=== PATIENT | male | born 1995 | race Native Hawaiian/Other Pacific Islander ===

== ENCOUNTER 2022-04-09 09:18 | Inpatient (IN) ==
[2022-04-09] MEDS ORDERED: SODIUM CHLORIDE 0.9% 1000ML 500 ML IV ONE ×2 (09:28→16:41)
--- NOTE | 2022-04-09 09:30 | Emergency Department Note ---
Impression & Plan Pneumothorax ADMIT ED Provider Note HPI: The patient is a 26-year-old male who presents emergency department with a chief complaint of right-sided chest pain. Patient states that his symptoms began about 40 minutes prior to arrival to the ED. Patient states that he has sensation as if he had a "muscle tear" in his right pectoral muscle, denies any injuries, denies any inciting event and states the pain just began spontaneously. Patient does complain of some mild shortness of breath. Patient also states that he had an episode where he felt as if he was going to "pass out" although he did not lose consciousness and then this episode resolved and he feels back to baseline from that standpoint. On arrival here to the ED the patient is hemodynamically stable, he is saturating well on room air on my initial assessment. ROS: -Cardio: Right-sided chest discomfort *10 point review systems was conducted and is otherwise negative unless stated above *Outpatient medications and allergy history reviewed PE: General: Alert HEENT: Normocephalic, trachea midline Eyes: Extraocular eye movement is intact, no scleral erythema Pulmonary: Slightly diminished breath sounds on the right side, no wheezing or crackles noted bilaterally, breath sounds on the left side are clear Cardio: Regular rate and rhythm GI: Abdomen is soft, nontender : No suprapubic tenderness MSK: No evidence of trauma or malformation of the extremities, no edema Skin: No evidence of rash Neuro: Alert, no focal deficits Psychiatric: Cooperative general accounting clerk: - An order was placed for continuous cardiac monitoring - Patient was noted to be in sinus rhythm with a rate of 70 EKG: Rate: 62 Rhythm: Normal sinus rhythm Intervals: Within normal limits ST changes: No ST elevation Time: 928 Medical Decision Making: Patient presented to the emergency department with right-sided chest discomfort that began earlier this morning. Chest x-ray shows evidence of a moderate sized pneumothorax on the right, this is the second time the patient has had this issue, he notes that previously he did not require chest tube. Lab work is otherwise reassuring including a normal troponin and negative D-dimer, EKG shows normal sinus rhythm without ischemic changes. Patient is hemodynamically stable here in the ED and he is saturating well on room air without tachycardia. I discussed the patient's case with on-call pulmonology, Dr. Mckoen, who recommended admission and stated that he would perform the chest tube himself. Case was then discussed with the on-call hospitalist, Dr. Mckeon, who was in agreement for admission. At the advice of Dr. Mckeon I did contact c ardiothoracic surgery at [facility] in [facility], I discussed the case with Dr. Callejas, who was in agreement that the patient will likely require a VATS procedure at some point in the near future as this is the second time he has had a spontaneous pneumothorax on the right side, at this time he does not think that this needs to happen emergently and the patient can be admitted here for definitive care with chest tube placement and follow-up with cardiothoracic surgery at [facility] in the next several weeks following his discharge. Patient was in agreement to this plan and he was admitted in stable condition for pulmonology consultation, chest tube placement, and observation admission. Diagnosis: 1. Right-sided chest pain, acute 2. Spontaneous pneumothorax, right-sided Disposition: Admission Chad Taylor DO Emergency Medicine Past Med/Surg History Medical History No significant past medical history Surgical History No significant past surgical history Family History Other Heart disease Social History Smoking Status: Never smoker Preferred Language: Danish Feels Safe at Home: Yes Allergies Allergies Allergy/AdvReac Type Severity Reaction Status Date / Time No Known Allergies Allergy Verified 05/03/21 16:04 Home Meds Home Medications Medication Instructions Recorded Confirmed acetaminophen 500 mg tablet 500 mg PO Q6H PRN Pain 05/03/21 04/09/22 (Tylenol Extra Strength) finasteride 1 mg tablet 1 mg PO DAILY 04/09/22 04/09/22 Results & Data (ED) Vital Signs Vital Signs - 24 hr 04/09/22 09:20 04/09/22 09:35 04/09/22 09:35 Temperature 36.7 C Temperature Source Temporal Artery Scan Pulse Rate 62 62 Pulse Rate from SpO2 Sensor Pulse Rhythm Regular Respiratory Rate 20 20 Respiratory Effort / Characteristics Non-Labored Non-Labored Respiratory Depth Normal Normal Blood Pressure 107/48 L Blood Pressure Mean 67 Pulse Oximetry 98 98 Oxygen Delivery Method Room Air Room Air Room Air Sepsis Recent Fever Within 48 Hours No Sepsis New/Unexplained Change in Mental Status N/A Sepsis Action Taken by Nursing No Action Required 04/09/22 09:33 04/09/22 10:00 04/09/22 10:30 Temperature Temperature Source Pulse Rate 55 L 56 L 65 Pulse Rate from SpO2 Sensor 55 L 55 L 62 Pulse Rhythm Respiratory Rate 15 16 13 Respiratory Effort / Characteristics Respiratory Depth Blood Pressure 120/54 L 115/67 Blood Pressure Mean 76 83 Pulse Oximetry 99 100 99 Oxygen Delivery Method Sepsis Recent Fever Within 48 Hours Sepsis New/Unexplained Change in Mental Status Sepsis Action Taken by Nursing Laboratory Data Result diagrams: 04/09/22 09:35 04/09/22 09:35 Lab Results 04/09/22 04/09/22 04/09/22 Range/Units 09:35 09:35 09:35 WBC 4.18 L (4.8-10.8) K/ul RBC 5.39 (4.63-6.08) M/uL Hgb 16.4 (14.0-18.0) g/dl Hct 47.8 (40.1-51.0) % MCV 88.7 (80.0-100.0) fL MCH 30.4 (25.0-34.0) pg MCHC 34.3 (32.0-36.0) g/dL RDW Std Deviation 38.5 (36.4-46.3) fL RDW Coeff of Holly 11.9 (11.5-14.5) % Plt Count 220 (130-400) K/uL MPV 10.0 (9.4-12.4) fL Immature Gran % (Auto) 0.2 % Neut % (Auto) 56.8 % Lymph % (Auto) 29.9 % Hunt % (Auto) 6.2 % Eos % (Auto) 6.2 % Baso % (Auto) 0.7 % Neut # (Auto) 2.37 (1.4-6.5) K/uL Lymph # (Auto) 1.25 (1.2-3.4) K/uL Hunt # (Auto) 0.26 (0.24-0.82) K/uL Eos # (Auto) 0.26 (0-0.50) K/uL Baso # (Auto) 0.03 (0-0.2) K/uL Immature Gran # (Auto) 0.01 (0.00-0.02) K/uL D-Dimer Cancelled Sodium 138 (136-145) mmol/L Potassium TNP Chloride 104 (98-107) mmol/L Carbon Dioxide 29 (21-32) mmol/L Anion Gap 5 (3-11) BUN 13 (6-23) mg/dl Creatinine 1.06 (0.6-1.4) mg/dl Est Cr Clr Drug Dosing 117.9 ml/min Est GFR ( Amer) 113.3 ml/min Est GFR (Non-Af Amer) 97.8 ml/min BUN/Creatinine Ratio 12.3 (10-20) Glucose 99 (70-99(Fasting)) mg/dl Calcium 9.8 (8.5-10.1) mg/dl Total Bilirubin 0.7 (0.2-1.0) mg/dl AST TNP ALT 26 (7-52) U/L Alkaline Phosphatase 45 (34-104) U/L Troponin I High Sens 3.1 (0-20) pg/ml Total Protein 7.6 (6.0-8.3) gm/dl Albumin 4.7 (3.4-5.0) gm/dl Globulin 2.9 (2.5-4.0) gm/dl Albumin/Globulin Ratio 1.6 (0.9-2) Lipase 19 (11-82) U/L SARS-CoV-2, RNA, NAAT (NEGATIVE) 04/09/22 04/09/22 Range/Units 10:27 10:34 WBC (4.8-10.8) K/ul RBC (4.63-6.08) M/uL Hgb (14.0-18.0) g/dl Hct (40.1-51.0) % MCV (80.0-100.0) fL MCH (25.0-34.0) pg MCHC (32.0-36.0) g/dL RDW Std Deviation (36.4-46.3) fL RDW Coeff of Holly (11.5-14.5) % Plt Count (130-400) K/uL MPV (9.4-12.4) fL Immature Gran % (Auto) % Neut % (Auto) % Lymph % (Auto) % Hunt % (Auto) % Eos % (Auto) % Baso % (Auto) % Neut # (Auto) (1.4-6.5) K/uL Lymph # (Auto) (1.2-3.4) K/uL Hunt # (Auto) (0.24-0.82) K/uL Eos # (Auto) (0-0.50) K/uL Baso # (Auto) (0-0.2) K/uL Immature Gran # (Auto) (0.00-0.02) K/uL D-Dimer < 190 Sodium (136-145) mmol/L Potassium Chloride (98-107) mmol/L Carbon Dioxide (21-32) mmol/L Anion Gap (3-11) BUN (6-23) mg/dl Creatinine (0.6-1.4) mg/dl Est Cr Clr Drug Dosing ml/min Est GFR ( Amer) ml/min Est GFR (Non-Af Amer) ml/min BUN/Creatinine Ratio (10-20) Glucose (70-99(Fasting)) mg/dl Calcium (8.5-10.1) mg/dl Total Bilirubin (0.2-1.0) mg/dl AST ALT (7-52) U/L Alkaline Phosphatase (34-104) U/L Troponin I High Sens (0-20) pg/ml Total Protein (6.0-8.3) gm/dl Albumin (3.4-5.0) gm/dl Globulin (2.5-4.0) gm/dl Albumin/Globulin Ratio (0.9-2) Lipase (11-82) U/L SARS-CoV-2, RNA, NAAT NEGATIVE (NEGATIVE) Administered Medications Discontinued Medications Sodium Chloride (Nss 1000ml) 500 mls @ 999 mls/hr IV .Q31M ONE Stop: 04/09/22 09:58 Last Infusion: 04/09/22 10:12 Dose: 0 mls/hr Documented By: Admin: 04/09/22 09:39 Dose: 999 mls/hr Documented By: SERA Imaging Data Radiologist's Impression: Chest X-Ray 04/09/22 09:20 SINGLE VIEW CHEST CLINICAL HISTORY: Atypical chest pain FINDINGS: 2 AP, portable, upright chest radiographs are compared to study dated 05/02/2021. The cardiomediastinal silhouette is unremarkable. No airspace consolidation or pleural effusion is identified. There is a moderate right apical pneumothorax with approximately 4 cm pleural separation. The bony thorax is grossly intact. IMPRESSION: Moderate right apical pneumothorax. ACT 112: Negative or not required by law. Electronically signed by: Santiago Atkinson M.D. 04/09/2022 10:13 AM Discharge Plan Visit Data Chief Complaint: Chest Pain Stated Complaint: SEVERE CHEST PAIN,NEAR SYNCOPE ED Provider: Chad Taylor Discharge Problem: Pneumothorax Patient Disposition: Admitted As Inpatient Forms Stand Alone Forms: [facility] [employer] Prescriptions Prescriptions: No Action acetaminophen [Tylenol Extra Strength] 500 mg tablet 500 mg PO Q6H PRN (Reason: Pain) finasteride 1 mg tablet 1 mg PO DAILY Referrals Referrals: PCP,NO [Primary Care Provider] -
[2022-04-09 10:05] LABS: Basophils # (auto) 0.03 K/uL (0-0.2); Basophils % (auto) 0.7 %; Eosinophils # (auto) 0.26 K/uL (0-0.50); Eosinophils % (auto) 6.2 %; Hematocrit (blood only) 47.8 % (40.1-51.0); Hemoglobin 16.4 g/dl (14.0-18.0); Immature Granulocytes # (auto) 0.01 K/uL (0.00-0.02); Immature Granulocytes % (auto) 0.2 %; Lymphocytes # (auto) 1.25 K/uL (1.2-3.4); Lymphocytes % (auto) 29.9 %; Mean Corpuscular Hemoglobin 30.4 pg (25.0-34.0); Mean Corpuscular Hgb Conc 34.3 g/dL (32.0-36.0); Mean Corpuscular Volume 88.7 fL (80.0-100.0); Monocytes # (auto) 0.26 K/uL (0.24-0.82); Monocytes % (auto) 6.2 %; Neutrophils # (auto) 2.37 K/uL (1.4-6.5); Neutrophils % (auto) 56.8 %; Platelet Count 220 K/uL (130-400); RDW Coefficient of Variation 11.9 % (11.5-14.5); RDW Standard Deviation 38.5 fL (36.4-46.3); Red Blood Count 5.39 M/uL (4.63-6.08); White Blood Count 4.18 K/ul (4.8-10.8)
--- NOTE | 2022-04-09 10:15 | XRay Report ---
SINGLE VIEW CHEST CLINICAL HISTORY: Atypical chest pain FINDINGS: 2 AP, portable, upright chest radiographs are compared to study dated 05/02/2021. The cardio mediastinal silhouette is unremarkable. No airspace consolidation or pleural effusion is identified. There is a moderate right apical pneumothorax with approximately 4 cm pleural separation. The bony th orax is grossly intact. IMPRESSION: Moderate right apical pneumothorax. ACT 112: Negative or not required by law. Electronically signed by: Santiago Atkinson M.D. 04/09/2022 10:13 AM
[2022-04-09] MEDS ORDERED: LIDOCAINE 1%/EPINEPHRINE 1:100,000 50 ML VIAL ONE ×2 (10:18→10:20)
--- NOTE | 2022-04-09 10:51 | History & Physical Report ---
Date of Service April 09, 2022 Assessment & Plan (1) Spontaneous pneumothorax: Plan: Cedrick is a 26-year-old male who presents with a second episode of spontaneous pneumothorax, had tearing right chest wall pain 40 minutes before presentation to ER. Recurrent Right Spontaneous apical pneumothorax No history of trauma, occurred spontaneously with a sudden tearing sensation 40 minutes prior to ER presentation No history of tobacco use, vape use, underlying lung disease Second episode, patient with a Spontaneous 4.6 cm apical right pneumothorax 05/02/2021 4 cm pleural separation on presenting CXR D-dimer normal, COVID-negative, troponin normal Pulmonary consulted. Repeat serial imaging at 3 PM. Case was discussed by ER with tertiary care who did not recommend transfer for surgical intervention. We will see for follow-up as outpatient. Avoid NIV/PPV/HFNC Placed on oxygen nonrebreather to facilitate absorption pending pulm evaluation/pigtail Alopecia - Finasteride 1mg home dose continued DVT PPx: Low risk, SCDs Diet: Reg Dispo: PCU CODE STATUS: Full (2) Chest pain: History of Present Illness Primary Care Provider: NO PCP Cedrick is a 26-year-old male with no past medical history no chronic medications who presented to the emergency department with right-sided chest pain which began 40 minutes prior to presentation to the ER. Feeling of a tearing sensation in his right chest with some lightheadedness, although no loss of consciousness. On arrival to ER was satting on room air and felt back to normal. 8:30am started to feel pain in his upper R chest and pain began to swell and he had some dizziness/lightheadedness and which lasted for a few minutes. Pain persisted and came in the No leukocytosis, hemoglobin 16.4, COVID is pending, CXR: Moderate right apical pneumothorax with 4 cm pleural separation No coughing, no trauma or injury. Had 1 similar episode/pneumo in April which improved with conservative treatment. 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 No history of lung problems inclduing asthma/wheezing/prior pneumo No family history of pneumo, lung problems No chest pain at time of assessment. No pain sitting up, does have pain when he starts moving No shortness of breath at time of assessment, no lightheadedness/dizziness/N/V/D/C. No ab pain Finasteride for hair loss, no other chronic medications No medication allergies Medical History: Reviewed Medications: Reviewed. Takes finasteride for hair loss. No other medications Surgical History: Reviewed Allergies: Reviewed Social History: No tobacco products, rare social alcohol use none recently. No MM, no vaping. Code Status: FUll Code Allergies Allergy/AdvReac Type Severity Reaction Status Date / Time No Known Allergies Allergy Verified 05/03/21 16:04 Home Medications Medication Instructions Recorded Confirmed Type acetaminophen 500 mg tablet 500 mg PO Q6H PRN Pain 05/03/21 04/09/22 History (Tylenol Extra Strength) finasteride 1 mg tablet 1 mg PO DAILY 04/09/22 04/09/22 History Past Med/Surg History Medical History No significant past medical history Surgical History No significant past surgical history Family History Other Heart disease Social History Smoking Status: Never smoker Preferred Language: Bengali Feels Safe at Home: Yes Review of Systems Review of Systems: All systems reviewed & are unremarkable except as noted in Subjective Physical Exam Physical Exam: General: A&Ox3. NAD. Cooperative. HEENT: Atraumatic, normocephalic. Vision/hearing grossly intact Pulm: CTAB A&P. -wheezes, -rales, -rhonchi. Symmetrical chest rise. No increased work of breathing. No respiratory distress. Cardiac: RRR, -mrg. Radial pulses intact and symmetrical. Abdominal: Nontender, nondistended, soft. BS present. Ext: warm, dry. moving all extremities equally. Sensation/strength grossly itnact. Results & Data Results & Data ([facility]) Vital Signs (Past 12 Hours) Vital Signs Temp Pulse Resp BP Pulse Ox O2 Del Method 04/09/22 10:30 65 13 99 04/09/22 10:00 56 L 16 115/67 100 04/09/22 09:33 55 L 15 120/54 L 99 04/09/22 09:35 62 20 98 Room Air 04/09/22 09:35 Room Air 04/09/22 09:20 36.7 C 62 20 107/48 L 98 Room Air PG Care Time/CCT Total # of Minutes Spent Total Time Spent with Patient: Total time spent is greater than 50% in coordination of care (as documented) at patient's floor/unit and/or counseling patient: Coding Level of Care Code 16653 Initial Inpt Care Lvl 2 Diagnoses Spontaneous pneumothorax J93.83 Chest pain R07.9
--- NOTE | 2022-04-09 11:01 | Pulmonary Consultation ---
Date of Consultation April 09, 2022 Assessment & Plan (1) Spontaneous pneumothorax: (2) Chest pain: Plan Chest x-ray 04/09/2022 personally reviewed: Pulm both lungs, right-sided pneumothorax appreciated small to moderate in size, no mediastinal shift -- Spontaneous pneumothorax Right-sided, this is the second instance Patient initially had a chest x-ray done 05/02/2021 with similar presentation and had moderate-sized pneumothorax at that time Patient was sent home and no intervention was taken at that time Pneumothorax which he had 05/02/2021 spontaneously resolved and this is likely a new pneumothorax -- Chest pain Likely secondary to above Plan: Given that this is second episode of right-sided pneumothorax within a year. Surgical intervention/VATS would be appropriate Dr. Taylor was able to get in touch with CT thoracic surgery who wants follow-up as an outpatient once this episode has been taken care of. Patient is right now hemodynamically stable. I will put him on 100% nonrebreather. If there is no improvement in the size of the pneumothorax in 4-6 hours then consideration for pigtail catheter will be made I did discuss the case with Dr. Collado and Dr Sorto Please note the above document was generated using voice recognition software. It may contain grammatical, syntax or spelling errors.Any formal questions or concerns about the content, text or information contained within the body of this dictation should be directly addressed to the provider for clarification. History of Present Illness History of Present Illness 26-year-old male coming to pulmonary because of right-sided chest pain Past medical history: Noncontributory Patient says that today in the morning he woke up with pain on the right side of the chest. It increased in intensity and felt chest pressure on the right side It has improved since coming to the hospital but he still gets pain when he takes deep breath He goes to the gym up to 2-3 times a week. He was here in the ER on 05/02/2021 when he complained of chest pain when he was doing chest press on the right side. He had a chest x-ray done in the ER which was read normal and he was sent home. I personally looked at the chest x-ray and he had moderate-sized pneumothorax on the right side at that time as well. Denies any history of trauma. No headache, no nausea vomiting No history of lung disease in the family. Did not has any fits of coughing lately. No fever or chills Social history: Lifetime non-smoker, no marijuana use. Social alcohol. Allergies Allergy/AdvReac Type Severity Reaction Status Date / Time No Known Allergies Allergy Verified 05/03/21 16:04 Home Medications Medication Instructions Recorded Confirmed Type acetaminophen 500 mg tablet 500 mg PO Q6H PRN Pain 05/03/21 04/09/22 History (Tylenol Extra Strength) finasteride 1 mg tablet 1 mg PO DAILY 04/09/22 04/09/22 History Patient History Medical History (Updated 04/09/22 @ 10:58 by Bud Mckeon MD, [facility]) No significant past medical history Surgical History No significant past surgical history Family History (Updated 05/02/21 @ 07:36 by Kerry Pfeiffer PA-C) Other Heart disease Social History Smoking Status: Never smoker Preferred Language: Turkmen Feels Safe at Home: Yes Review of Systems Review of Systems: All systems reviewed & are unremarkable except as noted in HPI & below Physical Exam Physical Exam: Constitutional: No acute distress HEENT: EOMI, PERRLA Respiratory system: Good air entry bilaterally no wheeze, no rhonchi, no crac kles CVS: S1-S2 positive, no murmurs or gallops Abdomen: Soft, nontender, nondistended, positive bowel sounds x4 Extremities: +2 pulses bilaterally radialis/ dorsalis pedis, no cyanosis, no edema Neuro: Awake alert oriented x3 Psych: Normal mood and affect G/U: Negative except as above Skin: no rashes, warm and dry Lymphatic: no cervical or axillary lymphadenopathy Results & Data Results & Data ([facility]) Vital Signs (Past 12 Hours) Vital Signs Temp Pulse Resp BP Pulse Ox O2 Del Method 04/09/22 10:30 65 13 99 04/09/22 10:00 56 L 16 115/67 100 04/09/22 09:33 55 L 15 120/54 L 99 04/09/22 09:35 62 20 98 Room Air 04/09/22 09:35 Room Air 04/09/22 09:20 36.7 C 62 20 107/48 L 98 Room Air Laboratory Results 04/09/22 09:35 PG Care Time/CCT Total # of Minutes Spent Total Time Spent with Patient: Total time spent is greater than 50% in coordination of care (as documented) at patient's floor/unit and/or counseling patient: Coding Level of Care Code 96595 Initial Inpt Care Lvl 3 Diagnoses Spontaneous pneumothorax J93.83 Chest pain R07.9
[2022-04-09 11:13] LABS: D Dimer < 190 ug/L FEU (0-500)
[2022-04-09 11:14] LABS: Alanine Aminotransferase 26 U/L (7-52)
[2022-04-09 11:15] LABS: Albumin Globulin Ratio 1.6 (0.9-2); Albumin Level 4.7 gm/dl (3.4-5.0); Alkaline Phosphatase 45 U/L (34-104); Anion Gap 5 (3-11); BUN Creatinine Ratio 12.3 (10-20); Bilirubin,Total 0.7 mg/dl (0.2-1.0); Blood Urea Nitrogen 13 mg/dl (6-23); Calcium 9.8 mg/dl (8.5-10.1); Carbon Dioxide 29 mmol/L (21-32); Chloride 104 mmol/L (98-107); Creatinine Clr Calc Pharmacy 117.9 ml/min; Est GFR (African American) 113.3 ml/min; Est GFR (Non-African American) 97.8 ml/min; Globulin 2.9 gm/dl (2.5-4.0); Glucose 99 mg/dl (70-99(Fasting)); Lipase 19 U/L (11-82); Sodium 138 mmol/L (136-145); Total Protein 7.6 gm/dl (6.0-8.3); Troponin I High Sensitivity 3.1 pg/ml (0-20)
[2022-04-09] MEDS ORDERED: ACETAMINOPHEN 325 MG TAB PO PRN (12:27)
--- NOTE | 2022-04-09 15:39 | XRay Report ---
SINGLE VIEW CHEST CLINICAL HISTORY: Pneumothorax. FINDINGS: 2 AP, portable, upright chest radiographs are compared to study performed earlier the same day 04/09/2022. The cardiomediastinal silhouette is unremarkable. There is no airspace consolidation or pleural effusion. The right pleural effusion is now large, and extends to the right lung base. The re is a maximum of 4.7 cm pleural separation at the right apex. The trachea is midline. The bony thor ax is grossly intact. IMPRESSION: Large right pneumothorax. This has significantly increased in size from today's earlier e xamination. ACT 112: Negative or not required by law. Electronically signed by: Santiago Atkinson M.D. 04/09/2022 3:37 PM
[2022-04-09] MEDS ORDERED: LIDOCAINE 1% LOCAL 20 ML VIAL ONE (16:03)
--- NOTE | 2022-04-09 16:43 | Procedure Note ---
Procedure Note Date of Service April 09, 2022 Note Procedure: Pigtail chest tube insertion Planer Operator / Grader: Dr. Bud Mckeon Indication: Right-sided pneumothorax Consent: Signed by patient and verified with timeout prior to procedure Anesthesia: 1% lidocaine without epinephrine local Procedure: Consent was verified and timeout performed. Appropriate imaging studies were reviewed prior to the procedure. Patient was placed in a seated position. Appropriate site above the diaphragm on the right midaxillary line fourth intercostal space for chest tube insertion was selected. The skin was prepped and draped in normal sterile fashion. Lidocaine was used for local analgesia. Air was aspirated via the finder needle. A small skin javi was made with the scalpel and the catheter over the needle apparatus was advanced over the rib into the pleural space. With the help of guidewire and Seldinger technique, 14 Swedish pigtail catheter was inserted and connected to Pleur-evac. No air leak appreciated after that. Chest x-ray to follow The patient tolerated the procedure without obvious complication Complications: None Blood loss: Less than 2 cc. Coding CPT Codes Pulmonary/Thoracic - Pulmonary and Thoracic: 14714 Tube thoracostomy ([id number]) [facility] Procedure Codes (Charges) Pulmonary/Thoracic Procedure 1: Pulmonary and Thoracic: 63667 Tube thoracostomy
--- NOTE | 2022-04-09 17:03 | Electrocardiogram Report ---
Test Reason : Blood Pressure : / mmHG Vent. Rate : 052 BPM Atrial Rate : 052 BPM P-R Int : 164 ms QRS Dur : 116 ms QT Int : 388 ms P-R-T Axes : 058 072 069 degrees QTc Int : 360 ms Sinus rhythm Anterior ST elevation, most consistent with repolarization variant Abnormal ECG When compared with ECG of 02-MAY-2021 07:25, No significant change Confirmed by Young Haynes ([id number]) on 04/09/2022 5:02:43 PM Referred By: REFERRED SELF Confirmed By:Young Haynes
--- NOTE | 2022-04-09 17:04 | XRay Report ---
XR chest 1V portable CLINICAL HISTORY: post pig tail chest tube placement TECHNIQUE: Single frontal radiograph of the chest was obtained. Comparison: Comparison is made to chest radiograph 04/09/2022 FINDINGS: Interval placement of a right pigtail catheter. The cardiomediastinal silhouette is normal. The lungs are clear. Previously noted right pneumothorax has resolved. IMPRESSION: Interval placement of right pigtail catheter with resolution of the previously seen pneumothorax. ACT 112: Negative or not required by law. Electronically signed by: Reuben Lee M.D. 04/09/2022 5:03 PM
[2022-04-10 06:03] LABS: Basophils # (auto) 0.04 K/uL (0-0.2); Basophils % (auto) 0.5 %; Eosinophils # (auto) 0.39 K/uL (0-0.50); Eosinophils % (auto) 5.2 %; Hemoglobin 15.8 g/dl (14.0-18.0); Immature Granulocytes # (auto) 0.02 K/uL (0.00-0.02); Immature Granulocytes % (auto) 0.3 %; Lymphocytes # (auto) 1.64 K/uL (1.2-3.4); Lymphocytes % (auto) 22.1 %; Mean Corpuscular Hemoglobin 30.7 pg (25.0-34.0); Mean Corpuscular Hgb Conc 34.3 g/dL (32.0-36.0); Mean Corpuscular Volume 89.3 fL (80.0-100.0); Mean Platelet Volume 10.1 fL (9.4-12.4); Monocytes # (auto) 0.53 K/uL (0.24-0.82); Monocytes % (auto) 7.1 %; Neutrophils # (auto) 4.81 K/uL (1.4-6.5); Neutrophils % (auto) 64.8 %; Platelet Count 203 K/uL (130-400); RDW Coefficient of Variation 11.9 % (11.5-14.5); RDW Standard Deviation 39.3 fL (36.4-46.3); Red Blood Count 5.15 M/uL (4.63-6.08); White Blood Count 7.43 K/ul (4.8-10.8)
[2022-04-10 06:31] LABS: BUN Creatinine Ratio 11.2 (10-20); Calcium 9.2 mg/dl (8.5-10.1); Creatinine Clr Calc Pharmacy 127.6 ml/min; Est GFR (African American) 124.6 ml/min; Est GFR (Non-African American) 107.5 ml/min; Potassium 4.4 mmol/L (3.5-5.1)
--- NOTE | 2022-04-10 07:51 | Pulmonology Progress Note ---
Date of Service April 10, 2022 Assessment & Plan (1) Spontaneous pneumothorax: (2) Chest pain: Plan Chest x-ray 04/09/2022 personally reviewed: Pulm both lungs, right-sided pneumothorax appreciated small to moderate in size, no mediastinal shift CT chest 04/10/2022 personally reviewed: Right-sided pneumothorax appreciated with right lower lobe basilar atelectasis No clear blebs appreciated on the right side No mediastinal lymphadenopathy -- Spontaneous pneumothorax Right-sided, this is the second instance Patient initially had a chest x-ray done 05/02/2021 with similar presentation and had moderate-sized pneumothorax at that time Patient was sent home and no intervention was taken at that time Pneumothorax which he had 05/02/2021 spontaneously resolved and this is likely a new pneumothorax -- Chest pain Likely secondary to above Plan: Although CT chest did show pneumothorax, small apical pneumothorax appreciated on the right side on the chest x-ray At the time of physical exam the chest tube was found to be kinked. On unkinking the chest tube there was a leak appreciated which was right less than 15 seconds. I increased the suction to -30 Given that the patient had pneumothorax on the CAT scan it seems that he will need to be on suction for another 24 hours. Case was discussed with RN at bedside Please note the above document was generated using voice recognition software. It may contain grammatical, syntax or spelling errors.Any formal questions or concerns about the content, text or information contained within the body of this dictation should be directly addressed to the provider for clarification. Admission and Anticipated Discharge Date Admission Date: April 09, 2022 Subjective Patient seen and examined at bedside. No acute distress, no adverse events overnight. He did complain of some chest pain at the site of the chest tube. Breathing has improved since coming to the hospital. Denies any fever or chills No nausea or vomiting Review of Systems Review of Systems: All systems reviewed & are unremarkable except as noted in Subjective Physical Exam 2 Physical Exam: Constitutional: No acute distress HEENT: EOMI, PERRLA Respiratory system: Good air entry bilaterally no wheeze, no rhonchi, no crackles CVS: S1-S2 positive, no murmurs or gallops Abdomen: Soft, nontender, nondistended, positive bowel sounds x4 Extremities: +2 pulses bilaterally radialis/ dorsalis pedis, no cyanosis, no edema Neuro: Awake alert oriented x3 Psych: Normal mood and affect G/U: Negative except as above Skin: no rashes, warm and dry Lymphatic: no cervical or axillary lymphadenopathy Results & Data Results & Data ([facility]) Vital Signs (Past 12 Hours) Vital Signs Temp Pulse Pulse Resp BP Pulse Ox O2 Del Method 04/10/22 07:34 36.7 C 62 17 126/79 97 Room Air 04/10/22 03:34 36.4 C L 65 20 125/71 96 Room Air 04/09/22 23:52 36.5 C 87 18 125/61 92 Room Air 04/09/22 23:06 66 04/09/22 20:06 36.7 C 64 18 113/71 97 Room Air Laboratory Results 04/10/22 05:15 04/10/22 05:15 PG Care Time/CCT Total # of Minutes Spent Total Time Spent with Patient: Total time spent is greater than 50% in coordination of care (as documented) at patient's floor/unit and/or counseling patient: Coding Level of Care Code 41028 Subseq Hosp Care Lvl 2 Diagnoses Spontaneous pneumothorax J93.83 Chest pain R07.9
--- NOTE | 2022-04-10 07:54 | XRay Report ---
XR chest 1V portable CLINICAL HISTORY: pneumo serial exam COMPARISON STUDY: Chest radiograph April 09, 2022 of 4:[address] performed earlier today . FINDINGS: Right basilar pleural catheter remains in place. A small right pneumothorax is noted with s uperior pleural separation 1.4 cm. Right lower lobe subpleural opacity favors atelectasis. There is n o left pneumothorax. Cardiac size is normal. Mediastinal contours are normal. IMPRESSION: Right basilar pleural catheter in place. Small right pneumothorax. ACT 112: Negative or not required by law. Electronically signed by: Shaheed Argueta M.D. 04/10/2022 7:52 AM
--- NOTE | 2022-04-10 08:04 | CT Scan Report ---
CT OF THE CHEST WITHOUT IV CONTRAST CLINICAL HISTORY: Pneumothorax. COMPARISON STUDY: Chest radiograph April 09, 2022 at 4:[address] DOSE: 360.12 mGy.cm TECHNIQUE: Axial images of the chest were obtained without IV contrast. Images were reviewed in the axial, sagittal, and coronal planes. IV contrast was not administered for this examination. Automat ed exposure control was utilized for the study. A dose lowering technique was utilized adhering to t he principles of ALARA. FINDINGS: A right pleural catheter is in place. There is a small right pneumothorax which occupies 20 % of the right hemithorax. Subpleural right lower lobe opacity reflects atelectasis. Trace right pleu ral effusion is present. No right-sided blebs are identified. There is no definitive source for the s pontaneous right pneumothorax. There are a few equivocal small left apical blebs. No left-sided pneum othorax is present. There is no consolidation to suggest pneumonia. Central airways are patent. No ac cheesh-na rib or thoracic spine fracture is noted. Visualized portions of the upper abdomen are unremarkabl e on this unenhanced exam. IMPRESSION: 1. Small right pneumothorax. Right pleural catheter in place. 2. No right-sided blebs identified. No definitive source for the spontaneous right pneumothorax. 3. A few equivocal small left apical blebs. 4. Subpleural right lower lobe opacity which reflects atelectasis. ACT 112: Negative or not required by law. Electronically signed by: Shaheed Argueta M.D. 04/10/2022 8:02 AM
--- NOTE | 2022-04-10 15:40 | Hospitalist Progress Note ---
Date of Service April 10, 2022 Assessment & Plan (1) Spontaneous pneumothorax: Plan: Cedrick is a 26-year-old male who presents with a second episode of spontaneous pneumothorax, had tearing right chest wall pain 40 minutes before presentation to ER. Recurrent Right Spontaneous apical pneumothorax No history of trauma, occurred spontaneously with a sudden tearing sensation 40 minutes prior to ER presentation No history of tobacco use, vape use, underlying lung disease Second episode, patient with a Spontaneous 4.6 cm apical right pneumothorax 05/02/2021 4 cm pleural separation on presenting CXR D-dimer normal, COVID-negative, troponin normal Pulmonary consulted-placed pigtail catheter with waterseal and vacuum, recommending continued vacuum into tomorrow Avoid NIV/PPV/HFNC - Case discussed with thoracic surgeon at [facility] recommended outpatient follow-up rather than urgent intervention - we will discuss CT chest imaging with radiologist to evaluate for pectus excavatum (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 CODE STATUS: Full code Admission and Anticipated Discharge Date Admission Date: April 09, 2022 Supervising Physician Co-Signing Physician Notes Resident Physician Supervision Note: I independently interviewed and examined the patient and verified the foley history and physical, reviewed labs and image studies and agree with resident findings and care plan. Subjective Patient seen at bedside this morning. No acute events reported overnight. Patient seems to be doing well and having only mild discomfort/pain at the chest tube site. Reports otherwise that he feels well. Went back into his history l ittle bit does seem that there is no family history of mixed tissue diseases/Marfan/Kathryn-Danlos. Denies any family history of premature cardiac . Overall doing well. Shortness of breath improved. Patient otherwise has no other complaints today Review of Systems Review of Systems: All systems reviewed & are unremarkable except as noted in HPI & below Physical Exam Constitutional: WD/WN, vitals as above Eyes: + anicteric sclerae Neck: normal visual inspection Respiratory: normal respiratory effort; no respiratory distress Auscul tation: + diminished lung sounds (At the right apex otherwise clear to auscultation) Cardiovascular: RRR, no murmur, no edema Chest (Breasts): Chest: normal inspection of chest Gastrointestinal (Abdomen): normal bowel sounds, soft, nontender, no hepatosplenomegaly Musculoskeletal: Head/Neck/Chest: normocephalic and head atraumatic Skin: no rashes, warm and dry Neurologic: moves all extremities Psychiatric: A+Ox3, euthymic affect Results & Data Results & Data ([facility]) Vital Signs (Past 12 Hours) Vital Signs Temp Pulse Pulse Resp BP Pulse Ox O2 Del Method 04/10/22 15:21 76 04/10/22 11:46 36.8 C 73 20 145/72 H 93 Room Air 04/10/22 08:23 66 04/10/22 07:34 36.7 C 62 17 126/79 97 Room Air 04/10/22 03:34 36.4 C L 65 20 125/71 96 Room Air
[2022-04-11 07:45] LABS: Hematocrit (blood only) 45.9 % (40.1-51.0); Hemoglobin 16.1 g/dl (14.0-18.0); Mean Corpuscular Hemoglobin 30.6 pg (25.0-34.0); Mean Corpuscular Hgb Conc 35.1 g/dL (32.0-36.0); Mean Corpuscular Volume 87.3 fL (80.0-100.0); Platelet Count 225 K/uL (130-400); RDW Coefficient of Variation 11.9 % (11.5-14.5); RDW Standard Deviation 38.5 fL (36.4-46.3); Red Blood Count 5.26 M/uL (4.63-6.08); White Blood Count 6.18 K/ul (4.8-10.8)
[2022-04-11 07:46] LABS: Mean Platelet Volume 9.7 fL (9.4-12.4)
[2022-04-11 08:20] LABS: BUN Creatinine Ratio 7.8 (10-20); Calcium 9.5 mg/dl (8.5-10.1); Creatinine Clr Calc Pharmacy 122.6 ml/min; Est GFR (African American) 118.7 ml/min; Est GFR (Non-African American) 102.4 ml/min; Potassium 4.2 mmol/L (3.5-5.1)
--- NOTE | 2022-04-11 08:46 | Pulmonology Progress Note ---
Date of Service April 11, 2022 Assessment & Plan (1) Spontaneous pneumothorax: (2) Chest pain: Plan Chest x-ray 04/09/2022 personally reviewed: Pulm both lungs, right-sided pneumothorax appreciated small to moderate in size, no mediastinal shift CT chest 04/10/2022 personally reviewed: Right-sided pneumothorax appreciated with right lower lobe basilar atelectasis No clear blebs appreciated on the right side No mediastinal lymphadenopathy -- Spontaneous pneumothorax Right-sided, this is the second instance Patient initially had a chest x-ray done 05/02/2021 with similar presentation and had moderate-sized pneumothorax at that time Patient was sent home and no intervention was taken at that time Pneumothorax which he had 05/02/2021 spontaneously resolved and this is likely a new pneumothorax Plan: Chest x-ray from today shows small apical pneumothorax. Unfortunately patient has +1 persistent leak with each breath. I will go down on suction to -20. If there is persistent air leak appreciated in the next 24-48 hours then surgical intervention should be sought Although CT chest did show pneumothorax, small apical pneumothorax appreciated on the right side on the chest x-ray Please note the above document was generated using voice recognition software. It may contain grammatical, syntax or spelling errors.Any formal questions or concerns about the content, text or information contained within the body of this dictation should be directly addressed to the provider for clarification. Admission and Anticipated Discharge Date Admission Date: April 09, 2022 Subjective Patient seen and examined at bedside. No acute distress, no adverse events overnight. Denies any shortness of breath Does complain of chest discomfort at the site of the chest tube No nausea vomiting No headache Review of Systems Review of Systems: All systems reviewed & are unremarkable except as noted in Subjective Physical Exam Physical Exam: Constitutional: No acute distress HEENT: EOMI, PERRLA Respiratory system: Mildly decreased air entry on the right side, no wheeze, rhonchi, no crackles CVS: S1-S2 positive, no murmurs or gallops Abdomen: Soft, nontender, nondistended, positive bowel sounds x4 Extremities: +2 pulses bilaterally radialis/ dorsalis pedis, no cyanosis, no edema Neuro: Awake alert oriented x3 Psych: Normal mood and affect G/U: Negative except as above Right-sided pigtail catheter in place Skin: no rashes, warm and dry Lymphatic: no cervical or axillary lymphadenopathy Results & Data Results & Data ([facility]) Vital Signs (Past 12 Hours) Vital Signs Temp Pulse Pulse Pulse Resp BP Pulse Ox 04/11/22 08:00 48 L 04/11/22 08:00 04/11/22 07:16 36.6 C 61 20 109/42 L 95 04/11/22 02:12 36.6 C 62 18 136/72 95 04/10/22 22:58 69 04/10/22 22:32 36.6 C 65 18 121/72 95 O2 Del Method 04/11/22 08:00 04/11/22 08:00 Room Air 04/11/22 07:16 Room Air 04/11/22 02:12 Room Air 04/10/22 22:58 04/10/22 22:32 Room Air Laboratory Results 04/11/22 07:20 04/11/22 07:20 PG Care Time/CCT Total # of Minutes Spent Total Time Spent with Patient: Total time spent is greater than 50% in coordination of care (as documented) at patient's floor/unit and/or counseling patient: Coding Level of Care Code 62010 Subseq Hosp Care Lvl 2 Diagnoses Spontaneous pneumothorax J93.83 Chest pain R07.9
--- NOTE | 2022-04-11 10:01 | XRay Report ---
XR chest 1V portable CLINICAL HISTORY: f/u TECHNIQUE: Single frontal radiograph of the chest was obtained. Comparison: Comparison is made to chest radiograph 04/10/2022 FINDINGS: Right chest tube is seen. The cardiomediastinal silhouette is normal. The lungs are clear. There is a 13 mm right apical pneumothorax, similar in appearance to prior exam. IMPRESSION: Stable appearance of right chest tube with stable small right pneumothorax. ACT 112: Negative or not required by law. Electronically signed by: Reuben Lee M.D. 04/11/2022 9:59 AM
--- NOTE | 2022-04-11 14:55 | Hospitalist Progress Note ---
Date of Service April 11, 2022 Assessment & Plan (1) Spontaneous pneumothorax: Plan: Recurrent Right Spontaneous apical pneumothorax No history of trauma, occurred spontaneously with a sudden tearing sensation 40 minutes prior to ER presentation No history of tobacco use, vape use, underlying lung disease Second episode, patient with a Spontaneous 4.6 cm apical right pneumothorax 05/02/2021 4 cm pleural separation on presenting CXR D-dimer normal, COVID-negative, troponin normal Pulmonary consulted-placed pigtail catheter with waterseal and vacuum, recommending continuing vacuum and observation into tomorrow - If no resolution of air leak, transfer to tertiary care center for surgical evaluation Avoid NIV/PPV/HFNC - we will discuss CT chest imaging with radiologist to evaluate for pectus excavatum (2) Chest wall pain: Plan: Chest wall pain at site of pigtail catheter insertion - Continue to monitor site for signs concerning for infection - Pain management as needed (3) Androgenetic alopecia: Plan: Androgenic alopecia - Continue finasteride 1mg daily Admission and Anticipated Discharge Date Admission Date: April 09, 2022 Supervising Physician Co-Signing Physician Notes Medical Student Supervision Note: I was personally present during medical student patient encounter and independently interviewed and examined the patient and verified the foley history and physical, reviewed labs and image studies, discussed the case with Serina and agree with the findings and care plan. chest pain is improved. denies shortness of breath. no fever. appetite normal o/e - no distress, lungs - CTA, breath sounds across the lung gutierres, heart - RRR spontaneous pneumothorax - second episode. imaging with decrease in pneumothorax. chest tube still with air leak with each breath. continue monitoring for 24-48hrs. if no improvement - will need surgical intervention. Subjective Patient seen and examined at bedside. No acute distress, no adverse events overnight. Per nursing, there were no significant events overnight; however, there was a small amount of straw colored fluid in the chest tube and air continues to leak from it into the one-way valve. The pain at the chest tube insertion site is slightly lessened from yesterday and remains exacerbated by motion. He voiced concern about infection due to an earache and red eyes late in the night. He did not endorse fevers or chills. Counseled patient that these were unlikely to be symptoms of an infection and to watch for red flags such as increased pain, erythema, swelling, or discharge. On exam, lung sounds at the right upper lobe have increased from yesterday. Good air flow appreciated. I examined the catheter site and did not see erythema, swelling, discharge, or other signs concerning for active infection. Per pulmonology, he is to remain in the hospital for observation until tomorrow 2/2 continued air leak from right lung. If the leak has not healed, consider transfer to tertiary care for surgical management. Review of Systems Review of Systems: Per HPI. Otherwise noncontributory. Physical Exam Physical Exam: Constitutional: No acute distress HEEN:, PERRLA Respiratory system: CTAB, good air flow appreciated bilaterally CVS: S1-S2 positive, no murmurs or gallops Neuro: Awake alert oriented x3 Psych: Normal mood and affect Right-sided pigtail catheter in place. No swelling or erythema seen at catheter site. Results & Data Results & Data ([facility]) Vital Signs (Past 12 Hours) Vital Signs Temp Pulse Pulse Resp BP Pulse Ox O2 Del Method 04/11/22 11:50 36.8 C 67 20 133/72 91 Room Air 04/11/22 08:00 48 L 04/11/22 08:00 Room Air 04/11/22 07:16 36.6 C 61 20 109/42 L 95 Room Air
--- NOTE | 2022-04-11 16:05 | XRay Report ---
SINGLE VIEW CHEST CLINICAL HISTORY: Pneumothorax. FINDINGS: An AP, portable, upright chest radiograph is compared to study dated 04/11/2022. The cardio mediastinal silhouette is unremarkable. A pigtail catheter is again seen at the right lung base. Ther e is persistent right apical pneumothorax with approximately 1.5 cm of pleural separation. The left l sarah is clear. The bony thorax is grossly intact. IMPRESSION: 1. Small residual right apical pneumothorax. 2. A right-sided chest tube is unchanged in position. ACT 112: Negative or not required by law. Electronically signed by: Santiago Atkinson M.D. 04/11/2022 4:04 PM
--- NOTE | 2022-04-12 07:40 | Pulmonology Progress Note ---
Date of Service April 12, 2022 Assessment & Plan (1) Spontaneous pneumothorax: (2) Chest pain: Plan Chest x-ray 04/09/2022 personally reviewed: Pulm both lungs, right-sided pneumothorax appreciated small to moderate in size, no mediastinal shift CT chest 04/10/2022 personally reviewed: Right-sided pneumothorax appreciated with right lower lobe basilar atelectasis No clear blebs appreciated on the right side No mediastinal lymphadenopathy -- Spontaneous pneumothorax Right-sided, this is the second instance Patient initially had a chest x-ray done 05/02/2021 with similar presentation and had moderate-sized pneumothorax at that time Patient was sent home and no intervention was taken at that time Pneumothorax which he had 05/02/2021 spontaneously resolved and this is likely a new pneumothorax Plan: Chest x-ray from today shows increase in the size of right-sided pneumothorax At bedside I checked the patency of the chest tube, it was patent and there was no air leak It was a mild illness 20 suction at that time. On increasing the suction to -40 there was some air bubbling appreciated for maybe 15 seconds continuous and then it stopped. He still has intermittent +1 airleak Given that it has been more than 48 hours and there is still persistent air leak I do think he should be evaluated by CT surgery. Put the chest tube on waterseal to see if there is worsening in the pneumothorax. Repeat chest x-ray at around 1 PM. Case was discussed with RN as well as resident physician Please note the above document was generated using voice recognition software. It may contain grammatical, syntax or spelling errors.Any formal questions or concerns about the content, text or information contained within the body of this dictation should be directly addressed to the provider for clarification. Admission and Anticipated Discharge Date Admission Date: April 09, 2022 Subjective Patient seen and examined at bedside. No acute distress, no adverse events overnight Right-sided pain around the chest tube has significantly decreased Fair appetite Denies any nausea vomiting No shortness of breath Review of Systems Review of Systems: All systems reviewed & are unremarkable except as noted in Subjective Physical Exam Physical Exam: Constitutional: No acute distress HEENT: EOMI, PERRLA, no subcu emphysema Respiratory system: Mildly decreased air entry on the right side, no wheeze, rhonchi, no crackles CVS: S1-S2 positive, no murmurs or gallops Abdomen: Soft, nontender, nondistended, positive bowel sounds x4 Extremities: +2 pulses bilaterally radialis/ dorsalis pedis, no cyanosis, no edema Neuro: Awake alert oriented x3 Psych: Normal mood and affect G/U: Negative except as above Right-sided pigtail catheter in place Skin: no rashes, warm and dry Lymphatic: no cervical or axillary lymphadenopathy Results & Data Results & Data ([facility]) Vital Signs (Past 12 Hours) Vital Signs Temp Pulse Pulse Resp BP Pulse Ox O2 Del Method 04/12/22 03:18 36.4 C L 62 16 108/60 94 Room Air 04/11/22 22:00 59 L 04/11/22 23:24 Room Air 04/11/22 22:56 36.4 C L 70 18 112/74 97 Room Air Laboratory Results 04/11/22 07:20 04/11/22 07:20 PG Care Time/CCT Total # of Minutes Spent Total Time Spent with Patient: Total time spent is greater than 50% in coordination of care (as documented) at patient's floor/unit and/or counseling patient: Coding Level of Care Code 55982 Subseq Hosp Care Lvl 2 Diagnoses Spontaneous pneumothorax J93.83 Chest pain R07.9
--- NOTE | 2022-04-12 08:09 | XRay Report ---
XR chest 1V portable HISTORY: Pneumothorax. Follow-up. COMPARISON: Chest 04/11/2022. FINDINGS: The right basilar pleural catheter remains unchanged in position. Small right apical pneumo thorax has slightly increased in size. This demonstrated a maximal pleural gap of 2.6 cm, present honey suring 1.6 cm. No midline shift. The lungs are clear. The heart is normal in size. IMPRESSION: 1. Slight increase in size of the small right pneumothorax. 2. A right sided chest tube is unchanged in position. ACT 112: Negative or not required by law. Electronically signed by: Federico Burleson M.D. 04/12/2022 8:08 AM
--- NOTE | 2022-04-12 14:28 | XRay Report ---
SINGLE VIEW CHEST CLINICAL HISTORY: Pneumothorax. FINDINGS: 2 AP, portable, upright chest radiographs are compared to study performed earlier the same day 04/12/2022. The cardiomediastinal silhouette is unremarkable. A pigtail catheter is again seen at the right lung base. There is a moderate to large right pneumothorax. This has increased in size fro m today's earlier examination and now extends to the right lung base. There is approximately 5 cm of apical pleural separation. The trachea is midline. The left lung is clear. The bony thorax is grossly intact. IMPRESSION: 1. Moderate to large right pneumothorax as above. This has significantly increased in size as compare d to today's earlier study. 2. A right-sided chest tube is unchanged in position. ACT 112: Negative or not required by law. Electronically signed by: Santiago Atkinson M.D. 04/12/2022 2:26 PM
--- NOTE | 2022-04-12 15:02 | Hospitalist Progress Note ---
Date of Service April 12, 2022 Assessment & Plan (1) Spontaneous pneumothorax: Plan: Recurrent Right Spontaneous apical pneumothorax No history of trauma, occurred spontaneously with a sudden tearing sensation 40 minutes prior to ER presentation No history of tobacco use, vape use, underlying lung disease Second episode, patient with a Spontaneous 4.6 cm apical right pneumothorax 05/02/2021 4 cm pleural separation on presenting CXR, now worsening at 5 cm with waterseal without vacuum D-dimer normal, COVID-negative, troponin normal Pulmonary consulted-placed pigtail catheter with waterseal, vacuum initially u sed which did show improvement of size but without resolution of hole in lung, vacuum discontinued with sequential expansion of pneumothorax to 5 cm -Unfortunately pneumothorax did not improve on its own and requires evaluation by CT surgeon. Transfer accepted to [facility] by Dr. Morales (2) Chest wall pain: Plan: Chest wall pain at site of pigtail catheter insertion - Continue to monitor site for signs concerning for infection - Pain management as needed (3) Androgenetic alopecia: Plan: Androgenic alopecia - Continue finasteride 1mg daily Diet: Regular DVT prophylaxis: Low risk Disposition: Transfer to [place] CODE STATUS: Full code (2) Androgenetic alopecia: Admission and Anticipated Discharge Date Admission Date: April 09, 2022 Supervising Physician Co-Signing Physician Notes Resident Physician Supervision Note: I independently interviewed and examined the patient and verified the foley history and physical, reviewed labs and image studies and agree with resident findings and care plan. Subjective Patient seen at bedside this morning. No acute events reported overnight. Unfortunately it seems that his pneumothorax has not sealed off and require transfer to tertiary care facility per pulmonology. Discussed this with patient as he is understanding of the situation. He continues to not have any shortness of breath. Denies any systemic symptoms such as fever, chills, nausea, or vomiting. Patient has multiple questions or is due to his satisfaction. Review of Systems Review of Systems: All systems reviewed & are unremarkable except as noted in HPI & below Physical Exam Constitutional: WD/WN, vitals as above Eyes: + anicteric sclerae Neck: normal visual inspection Respiratory: normal respiratory effort; no respiratory distress Auscultation: + diminished lung sounds (At the right apex otherwise clear to auscultation) Cardiovascular: RRR, no murmur, no edema Chest (Breasts): Chest: normal inspection of chest Gastrointestinal (Abdomen): normal bowel sounds, soft, nontender, no hepatosplenomegaly Musculoskeletal: Head/Neck/Chest: normocephalic and head atraumatic Skin: no rashes, warm and dry Neurologic: moves all extremities Psychiatric: A+Ox3, euthymic affect Results & Data Results & Data ([facility]) Vital Signs (Past 12 Hours) Vital Signs Temp Pulse Resp BP Pulse Ox O2 Del Method 04/12/22 11:15 36.8 C 76 18 119/73 95 Room Air 04/12/22 09:41 Room Air 04/12/22 08:00 36.9 C 60 16 100/64 98 Room Air 04/12/22 03:18 36.4 C L 62 16 108/60 94 Room Air
--- NOTE | 2022-04-12 19:17 | Discharge Summary ---
Date of Service April 12, 2022 Admission HPI Per Admitting Provider Cedrick is a 26-year-old male with no past medical history no chronic medications who presented to the emergency department with right-sided chest pain which began 40 minutes prior to presentation to the ER. Feeling of a tearing sensation in his right chest with some lightheadedness, although no loss of consciousness. On arrival to ER was satting on room air and felt back to normal. 8:30am started to feel pain in his upper R chest and pain began to swell and he had some dizziness/lightheadedness and which lasted for a few minutes. Pain persisted and came in the No leukocytosis, hemoglobin 16.4, COVID is pending, CXR: Moderate right apical pneumothorax with 4 cm pleural separation No coughing, no trauma or injury. Had 1 similar episode/pneumo in April which improved with conservative treatment. Last Friday (7 days ago) was doing a heavy lifting session at the gym and failed his last rep at the gym, 1 week ago and did not hit his chest or have any injury Slightly increased stress due to an exam for [employer]. No history of lung problems inclduing asthma/wheezing/prior pneumo No family history of pneumo, lung problems No chest pain at time of assessment. No pain sitting up, does have pain when he starts moving No shortness of breath at time of assessment, no lightheadedness/dizziness/N/V/D/C. No ab pain Finasteride for hair loss, no other chronic medications No medication allergies Medical History: Reviewed Medications: Reviewed. Takes finasteride for hair loss. No other medications Surgical History: Reviewed Allergies: Reviewed Social History: No tobacco products, rare social alcohol use none recently. No MM, no vaping. Code Status: FUll Code Admission Exam Per Admitting Provider General: A&Ox3. NAD. Cooperative. HEENT: Atraumatic, normocephalic. Vision/hearing grossly intact Pulm: CTAB A&P. -wheezes, -rales, -rhonchi. Symmetrical chest rise. No increased work of breathing. No respiratory distress. Cardiac: RRR, -mrg. Radial pulses intact and symmetrical. Abdominal: Nontender, nondistended, soft. BS present. Ext: warm, dry. moving all extremities equally. Sensation/strength grossly in tact. Principal Diagnosis spontaneous pneumothorax Discharge Exam General: Grossly A&O. NAD. Cooperative. Speaking in full sentences. HEENT: Atraumatic, normocephalic. EOMI Pulm: Slightly softer breath sounds on right. -wheezes, -rales, -rhonchi. No accessory muscle use. Chest tube in place on right. Cardiac: RRR, -mrg. No LE edema. Abdominal: Nontender, nondistended, soft. Integ: Area surrounding chest tube w/o erythema or drainage. Discharge Data Allergies Allergy/AdvReac Type Severity Reaction Status Date / Time No Known Allergies Allergy Verified 05/03/21 16:04 Consultations 04/09/22 10:26 Consult Pulmonology Stat 04/09/22 10:44 ED Decision to Admit Stat 04/12/22 13:54 Burn CD for patient Routine Procedures Performed 04/09/22: Pigtail chest tube insertion Ordered Studies Intake and Output 04/12/22 04/12/22 04/12/22 06:59 14:59 22:59 Intake Total 150 / 800 200 / 200 Output Total 0 / 2900 550 / 1050 500 / 1050 Balance 150 / -2100 -350 / -850 -500 / -850 Intake: Oral 150 / 800 200 / 200 Output: Urine 0 / 2900 550 / 1050 500 / 1050 # Bowel Movements 0 / 0 Other: Weight 81.3 kg 81.3 kg Weight Measurement Method Standing Scale Patient Weight 04/13/22 06:59 Weight 81.3 kg Chest X-Ray 04/09/22 09:20 SINGLE VIEW CHEST CLINICAL HISTORY: Atypical chest pain FINDINGS: 2 AP, portable, upright chest radiographs are compared to study dated 05/02/2021. The cardiomediastinal silhouette is unremarkable. No airspace consolidation or pleural effusion is identified. There is a moderate right apical pneumothorax with approximately 4 cm pleural separation. The bony thorax is grossly intact. IMPRESSION: Moderate right apical pneumothorax. ACT 112: Negative or not required by law. Electronically signed by: Santiago Atkinson M.D. 04/09/2022 10:13 AM Chest X-Ray 04/09/22 15:00 SINGLE VIEW CHEST CLINICAL HISTORY: Pneumothorax. FINDINGS: 2 AP, portable, upright chest radiographs are compared to study performed earlier the same day 04/09/2022. The cardiomediastinal silhouette is unremarkable. There is no airspace consolidation or pleural effusion. The right pleural effusion is now large, and extends to the right lung base. There is a maximum of 4.7 cm pleural separation at the right apex. The trachea is midline. The bony thorax is grossly intact. IMPRESSION: Large right pneumothorax. This has significantly increased in size from today's earlier examination. ACT 112: Negative or not required by law. Electronically signed by: Santiago Atkinson M.D. 04/09/2022 3:37 PM Chest X-Ray 04/09/22 16:33 XR chest 1V portable CLINICAL HISTORY: post pig tail chest tube placement TECHNIQUE: Single frontal radiograph of the chest was obtained. Comparison: Comparison is made to chest radiograph 04/09/2022 FINDINGS: Interval placement of a right pigtail catheter. The cardiomediastinal silhouette is normal. The lungs are clear. Previously noted right pneumothorax has resolved. IMPRESSION: Interval placement of right pigtail catheter with resolution of the previously seen pneumothorax. ACT 112: Negative or not required by law. Electronically signed by: Reuben Lee M.D. 04/09/2022 5:[address] 04/10/22 07:00 CT OF THE CHEST WITHOUT IV CONTRAST CLINICAL HISTORY: Pneumothorax. COMPARISON STUDY: Chest radiograph April 09, 2022 at 4:[address] DOSE: 360.12 mGy.cm TECHNIQUE: Axial images of the chest were obtained without IV contrast. Images were reviewed in the axial, sagittal, and coronal planes. IV contrast was not administered for this examination. Automated exposure control was utilized for the study. A dose lowering technique was utilized adhering to the principles of ALARA. FINDINGS: A right pleural catheter is in place. There is a small right pneumothorax which occupies 20% of the right hemithorax. Subpleural right lower lobe opacity reflects atelectasis. Trace right pleural effusion is present. No right-sided blebs are identified. There is no definitive source for the spontaneous right pneumothorax. There are a few equivocal small left apical blebs. No left-sided pneumothorax is present. There is no consolidation to suggest pneumonia. Central airways are patent. No acute rib or thoracic spine fracture is noted. Visualized portions of the upper abdomen are unremarkable on this unenhanced exam. IMPRESSION: 1. Small right pneumothorax. Right pleural catheter in place. 2. No right-sided blebs identified. No definitive source for the spontaneous right pneumothorax. 3. A few equivocal small left apical blebs. 4. Subpleural right lower lobe opacity which reflects atelectasis. ACT 112: Negative or not required by law. Electronically signed by: Shaheed Argueta M.D. 04/10/2022 8:02 AM Chest X-Ray 04/10/22 09:00 XR chest 1V portable CLINICAL HISTORY: pneumo serial exam COMPARISON STUDY: Chest radiograph April 09, 2022 of 4:[address] performed earlier today. FINDINGS: Right basilar pleural catheter remains in place. A small right pneumot horax is noted with superior pleural separation 1.4 cm. Right lower lobe subpleural opacity favors atelectasis. There is no left pneumothorax. Cardiac size is normal. Mediastinal contours are normal. IMPRESSION: Right basilar pleural catheter in place. Small right pneumothorax. ACT 112: Negative or not required by law. Electronically signed by: Shaheed Argueta M.D. 04/10/2022 7:52 AM Chest X-Ray 04/11/22 07:00 XR chest 1V portable CLINICAL HISTORY: f/u TECHNIQUE: Single frontal radiograph of the chest was obtained. Comparison: Comparison is made to chest radiograph 04/10/2022 FINDINGS: Right chest tube is seen. The cardiomediastinal silhouette is normal. The lungs are clear. There is a 13 mm right apical pneumothorax, similar in appearance to prior exam. IMPRESSION: Stable appearance of right chest tube with stable small right pneumothorax. ACT 112: Negative or not required by law. Electronically signed by: Reuben Lee M.D. 04/11/2022 9:59 AM Chest X-Ray 04/11/22 15:00 SINGLE VIEW CHEST CLINICAL HISTORY: Pneumothorax. FINDINGS: An AP, portable, upright chest radiograph is compared to study dated 04/11/2022. The cardiomediastinal silhouette is unremarkable. A pigtail catheter is again seen at the right lung base. There is persistent right apical pneumothorax with approximately 1.5 cm of pleural separation. The left lung is clear. The bony thorax is grossly intact. IMPRESSION: 1. Small residual right apical pneumothorax. 2. A right-sided chest tube is unchanged in position. ACT 112: Negative or not required by law. Electronically signed by: Santiago Atkinson M.D. 04/11/2022 4:04 PM Chest X-Ray 04/12/22 07:00 XR chest 1V portable HISTORY: Pneumothorax. Follow-up. COMPARISON: Chest 04/11/2022. FINDINGS: The right basilar pleural catheter remains unchanged in position. Small right apical pneumothorax has slightly increased in size. This demonstrated a maximal pleural gap of 2.6 cm, present measuring 1.6 cm. No midline shift. The lungs are clear. The heart is normal in size. IMPRESSION: 1. Slight increase in size of the small right pneumothorax. 2. A right sided chest tube is unchanged in position. ACT 112: Negative or not required by law. Electronically signed by: Federico Burlseon M.D. 04/12/2022 8:08 AM Chest X-Ray 04/12/22 14:00 SINGLE VIEW CHEST CLINICAL HISTORY: Pneumothorax. FINDINGS: 2 AP, portable, upright chest radiographs are compared to study perf ormed earlier the same day 04/12/2022. The cardiomediastinal silhouette is unremarkable. A pigtail catheter is again seen at the right lung base. There is a moderate to large right pneumothorax. This has increased in size from today's earlier examination and now extends to the right lung base. There is approximately 5 cm of apical pleural separation. The trachea is midline. The left lung is clear. The bony thorax is grossly intact. IMPRESSION: 1. Moderate to large right pneumothorax as above. This has significantly increased in size as compared to today's earlier study. 2. A right-sided chest tube is unchanged in position. ACT 112: Negative or not required by law. Electronically signed by: Santiago Atkinson M.D. 04/12/2022 2:26 PM Hospital Course (1) Spontaneous pneumothorax: 26-year-old male who presents with a second episode of spontaneous pneumothorax. Recurrent Right Spontaneous apical pneumothorax No history of trauma, occurred spontaneously with a sudden tearing sensation 40 minutes prior to ER presentation No history of tobacco use, vape use, underlying lung disease Second episode, patient with a Spontaneous 4.6 cm apical right pneumothorax 05/02/2021 4 cm pleural separation on presenting CXR, now worsening at 5 cm with waterseal without vacuum D-dimer normal, COVID-negative, troponin normal Pulmonary consulted-placed pigtail catheter with waterseal, vacuum initially used which did show improvement of size but without resolution of hole in lung, vacuum discontinued with sequential expansion of pneumothorax to 5 cm - Unfortunately pneumothorax did not improve despite 48 hours, will require evaluation by CT surgeon. Transfer accepted to [facility] by Dr. Morales Chest wall pain: - At site of pigtail catheter insertion - Continue to monitor site for signs concerning for infection - Pain management as needed Androgenetic alopecia: - Continue finasteride 1mg daily Diet: Regular DVT prophylaxis: Low risk Disposition: Transfer to [facility] CODE STATUS: Full code (2) Androgenetic alopecia: (3) Chest wall pain: Total Time Total Time Spent Total Time Spent (In Minutes): <30 Discharge Plan Discharge Items Patient Disposition: Transfer Acute Care Hospital Reason For Visit: SEVERE CHEST PAIN,NEAR SYNCOPE Discharge Diagnosis: spontaneous pneumothorax Activity: Per Instructions section Non-emergency contact: Primary Care Provider and Geriatric Physician Call non-emergency contact if: you have any medication questions and your symptoms worsen Follow-up/Referrals: Trey Mccarthy DO [Resident] - Diet: Regular Addtl Attending Provider Instructions: 26-year-old male who presents with a second episode of spontaneous pneumothorax. Recurrent Right Spontaneous apical pneumothorax No history of trauma, occurred spontaneously with a sudden tearing sensation 40 minutes prior to ER presentation No history of tobacco use, vape use, underlying lung disease Second episode, patient with a Spontaneous 4.6 cm apical right pneumothorax 05/02/2021 4 cm pleural separation on presenting CXR, now worsening at 5 cm with waterseal without vacuum D-dimer normal, COVID-negative, troponin normal Pulmonary consulted-placed pigtail catheter with waterseal, vacuum initially used which did show improvement of size but without resolution of hole in lung, vacuum discontinued with sequential expansion of pneumothorax to 5 cm -Unfortunately pneumothorax did not improve on its own and requires evaluation by CT surgeon. Transfer accepted to [facility] by Dr. Morales (2) Chest wall pain: Plan: Chest wall pain at site of pigtail catheter insertion - Continue to monitor site for signs concerning for infection - Pain management as needed (3) Androgenetic alopecia: Plan: Androgenic alopecia - Continue finasteride 1mg daily Diet: Regular DVT prophylaxis: Low risk Disposition: Transfer to [place] CODE STATUS: Full code Pending Studies at Discharge: No Stand-Alone Forms: [facility] Skilled Items Patient informed of condition?: Yes DNR: No Discharge Level of Care: Other Communicable Disease: No Discharge Prognosis: Stable Lines: None Urinary Catheter: No Medications and DC Order Prescriptions: Continued acetaminophen [Tylenol Extra Strength] 500 mg tablet 500 mg PO Q6H PRN (Reason: Pain) finasteride 1 mg tablet 1 mg PO DAILY Discharge Orders: Discharge Order (Routine); Ordered 04/12/22 Ordered By: Trey Mccarthy Admission Data Admit Date/Time: 04/09/22 10:51 Attending Provider: Meredith Woodward Admit Provider: Cedrick Sorto Primary Care Provider: PCP,KAMARI Other Providers: Bud Mckeon ; Cedrick Sorto Other Interventions: Discharge Summary Assessment (RN) Last Done: 04/12/22 19:52 Resident Activity Tracking Resident Involvement: Resident Care Provided Care Provided: Adult Hospital Medicine
--- NOTE | 2022-04-13 06:54 | XRay Report ---
XR chest 1V portable CLINICAL HISTORY: f/u COMPARISON STUDY: Chest radiograph April 12, 2022 at 2:08 PM. FINDINGS: Right pleural catheter remains in place. Right pneumothorax has significantly decreased in size since prior exam. Small residual right pneumothorax is noted with superior pleural separation of 1.7 cm. Medial right basilar opacity persists. This favors atelectasis. There is no pneumothorax. Ca rdiac size is normal. Mediastinal contours are normal. IMPRESSION: Small right pneumothorax, significantly decreased in size since prior exam. Right pleural catheter in place. ACT 112: Negative or not required by law. Electronically signed by: Shaheed Argueta M.D. 04/13/2022 6:52 AM
--- NOTE | 2022-04-13 06:59 | Discharge Summary ---
Date of Service April 13, 2022 Admission HPI Per Admitting Provider Cedrick is a 26-year-old male with no past medical history no chronic medications who presented to the emergency department with right-sided chest pain which began 40 minutes prior to presentation to the ER. Feeling of a tearing sensation in his right chest with some lightheadedness, although no loss of consciousness. On arrival to ER was satting on room air and felt back to normal. 8:30am started to feel pain in his upper R chest and pain began to swell and he had some dizziness/lightheadedness and which lasted for a few minutes. Pain persisted and came in the No leukocytosis, hemoglobin 16.4, COVID is pending, CXR: Moderate right apical pneumothorax with 4 cm pleural separation No coughing, no trauma or injury. Had 1 similar episode/pneumo in April which improved with conservative treatment. Last Friday (7 days ago) was doing a heavy lifting session at the gym and failed his last rep at the gym, 1 week ago and did not hit his chest or have any injury Slightly increased stress due to an exam for [employer] science. No history of lung problems inclduing asthma/wheezing/prior pneumo No family history of pneumo, lung problems No chest pain at time of assessment. No pain sitting up, does have pain when he starts moving No shortness of breath at time of assessment, no lightheadedness/dizziness/N/V/D/C. No ab pain Finasteride for hair loss, no other chronic medications No medication allergies Medical History: Reviewed Medications: Reviewed. Takes finasteride for hair loss. No other medications Surgical History: Reviewed Allergies: Reviewed Social History: No tobacco products, rare social alcohol use none recently. No MM, no vaping. Code Status: FUll Code Admission Exam Per Admitting Provider General: A&Ox3. NAD. Cooperative. HEENT: Atraumatic, normocephalic. Vision/hearing grossly intact Pulm: CTAB A&P. -wheezes, -rales, -rhonchi. Symmetrical chest rise. No increased work of breathing. No respiratory distress. Cardiac: RRR, -mrg. Radial pulses intact and symmetrical. Abdominal: Nontender, nondistended, soft. BS present. Ext: warm, dry. moving all extremities equally. Sensation/strength grossly itnact. Principal Diagnosis Spontaneous pneumothorax Discharge Exam General: Well-appearing, alert, interactive, and in no acute distress. HEENT: Normocephalic, atraumatic. EOM intact. Good conjugate gaze. Nares patent. Moist mucosal membranes. Neck: Supple. No lymphadenopathy. Normal ROM. CV: Regular rate and rhythm. Normal S1 and S2. No murmurs gallops or rubs. Respiratory: Normal respiratory effort. Lungs clear to auscultation bilaterally. Slightly decreased breath sounds at right lung base. Otherwise, no crackles, rhonchi, or wheezes. Abdomen: Soft, nondistended abdomen. No bruits heard on auscultation. No tenderness to deep palpation. No guarding or rebound. Extremities: Capillary refill <2 sec. 2+ dp equal bilaterally. No pedal edema. Neuro: Alert and oriented x3. Skin: Clean, dry, and intact. No rashes, bruises, or erythema. Discharge Data Allergies Allergy/AdvReac Type Severity Reaction Status Date / Time No Known Allergies Allergy Verified 05/03/21 16:04 Consultations 04/09/22 10:26 Consult Pulmonology Stat 04/09/22 10:44 ED Decision to Admit Stat 04/12/22 13:54 Burn CD for patient Routine Ordered Studies 04/10/22 07:00 CT chest diagnostic wo con DAILY Hospital Course (1) Spontaneous pneumothorax: 26 y/o M with h/o spontaneous pneumothorax x 1 presented with chest pain secondary to second episode of pneumothorax. Recurrent Right Spontaneous apical pneumothorax No history of trauma, occurred spontaneously with a sudden tearing sensation 40 minutes prior to ER presentation No history of tobacco use, vape use, underlying lung disease Second episode, patient with a Spontaneous 4.6 cm apical right pneumothorax 05/02/2021 4 cm pleural separation on presenting CXR, Pulmonary consulted-placed pigtail catheter with waterseal, vacuum initially used which did show improvement of size but without resolution of hole in lung, vacuum discontinued with sequential expansion of pneumothorax to 5 cm -Unfortunately pneumothorax did not improve on its own and requires evaluation by CT surgeon. Transfer accepted to [facility] by Dr. Morales (2) Chest wall pain: Chest wall pain at site of pigtail catheter insertion - Pain management as needed (3) Androgenetic alopecia: - Continue finasteride 1mg daily Diet: Regular DVT prophylaxis: Low risk Disposition: Transfer to [place] CODE STATUS: Full code (2) Androgenetic alopecia: Total Time Total Time Spent Total Time Spent (In Minutes): 60 Discharge Plan Discharge Items Patient Disposition: Transfer Acute Care Hospital Reason For Visit: SEVERE CHEST PAIN,NEAR SYNCOPE Discharge Diagnosis: spontaneous pneumothorax Activity: Per Instructions section Non-emergency contact: Primary Care Provider and Accounting Tutor Call non-emergency contact if: you have any medication questions and your symptoms worsen Follow-up/Referrals: Trey Mccarthy DO [Resident] - Diet: Regular Addtl Attending Provider Instructions: 26-year-old male who presents with a second episode of spontaneous pneumothorax. Recurrent Right Spontaneous apical pneumothorax No history of trauma, occurred spontaneously with a sudden tearing sensation 40 minutes prior to ER presentation No history of tobacco use, vape use, underlying lung disease Second episode, patient with a Spontaneous 4.6 cm apical right pneumothorax 05/02/2021 4 cm pleural separation on presenting CXR, now worsening at 5 cm, trialed waterseal without vacuum D-dimer normal, COVID-negative, troponin normal Pulmonary consulted-placed pigtail catheter with waterseal, vacuum initially used which did show improvement of size but without resolution of hole - Unfortunately pneumothorax did not improve after 48 hours and requires evaluation by CT surgeon. Transfer accepted to [facility] by Dr. Morales. Patient will be transported via ACLS w/ suction. Chest wall pain: - At site of pigtail catheter insertion - Continue to monitor site for signs concerning for infection - Pain management as needed (3) Androgenetic alopecia: Plan: Androgenic alopecia - Continue finasteride 1mg daily Diet: Regular DVT prophylaxis: Low risk Disposition: Transfer to [facility] CODE STATUS: Full code Pending Studies at Discharge: No Stand-Alone Forms[facility] Sk[facility] Items Patient informed of condition?: Yes DNR: No Discharge Level of Care: Other Communicable Disease: No Discharge Prognosis: Stable Lines: None Urinary Catheter: No Medications and DC Order Prescriptions: Continued acetaminophen [Tylenol Extra Strength] 500 mg tablet 500 mg PO Q6H PRN (Reason: Pain) finasteride 1 mg tablet 1 mg PO DAILY Discharge Orders: Discharge Order (Routine); Ordered 04/12/22 Ordered By: Trey Mccarthy Admission Data Admit Date/Time: 04/09/22 10:51 Attending Provider: Meredith Woodward Admit Provider: Cedrick Sorto Primary Care Provider: PCP,NO Other Providers: Bud Mckeon Paul Other Interventions: Discharge Summary Assessment (RN) Last Done: 04/12/22 19:52 Supervising Physician Co-Signing Physician Notes Resident Physician Supervision Note: I independently interviewed and examined the patient and verified the foley history and physical, reviewed labs and image studies and agree with resident findings and care plan. Resident Activity Tracking Resident Involvement: Resident Care Provided Care Provided: Adult Hospital Medicine
[2022-04-13 07:01] VITALS: BP 145/79; TEMP 97.7; O2SAT 98
--- NOTE | 2022-04-13 07:19 | Pulmonology Progress Note ---
Date of Service April 13, 2022 Assessment & Plan (1) Spontaneous pneumothorax: (2) Chest pain: Plan Chest x-ray 04/09/2022 personally reviewed: Pulm both lungs, right-sided pneumothorax appreciated small to moderate in size, no mediastinal shift CT chest 04/10/2022 personally reviewed: Right-sided pneumothorax appreciated with right lower lobe basilar atelectasis No clear blebs appreciated on the right side No mediastinal lymphadenopathy -- Spontaneous pneumothorax Right-sided, this is the second instance Patient initially had a chest x-ray done 05/02/2021 with similar presentation and had moderate-sized pneumothorax at that time Patient was sent home and no intervention was taken at that time Pneumothorax which he had 05/02/2021 spontaneously resolved and this is likely a new pneumothorax Plan: Chest x-ray from yesterday afternoon while on waterseal did show worsening of pneumothorax. On -40 suction today the chest x-ray showed significant improvement, small right apical pneumothorax still persists Patient still has +1 intermittent air leak appreciated Patient will benefit from VATS. Pending transfer to [facility] Please note the above document was generated using voice recognition software. It may contain grammatical, syntax or spelling errors.Any formal questions or concerns about the content, text or information contained within the body of this dictation should be directly addressed to the provider for clarification. Admission and Anticipated Discharge Date Admission Date: April 09, 2022 Subjective Patient seen and examined at bedside. No acute distress, no adverse events overnight. No chest pain, no shortness of breath No nausea vomiting Fair appetite Unfortunately there was no transport yesterday showed the patient is still in the hospital Review of Systems Review of Systems: All systems reviewed & are unremarkable except as noted in Subjective Physical Exam Physical Exam: Constitutional: No acute distress HEENT: EOMI, PERRLA, no subcu emphysema Respiratory system: Mildly decreased air entry on the right side, no wheeze, rhonchi, no crackles CVS: S1-S2 positive, no murmurs or gallops Abdomen: Soft, nontender, nondistended, positive bowel sounds x4 Extremities: +2 pulses bilaterally radialis/ dorsalis pedis, no cyanosis, no edema Neuro: Awake alert oriented x3 Psych: Normal mood and affect G/U: Negative except as above Right-sided pigtail catheter in place Skin: no rashes, warm and dry Lymphatic: no cervical or axillary lymphadenopathy Results & Data Results & Data ([facility]) Vital Signs (Past 12 Hours) Vital Signs Temp Pulse Pulse Pulse Resp BP Pulse Ox 04/13/22 07:00 36.5 C 60 18 145/79 H 98 04/13/22 04:58 36.3 C L 52 L 18 119/70 96 04/12/22 23:08 62 04/12/22 22:55 36.7 C 64 18 125/68 97 04/12/22 19:49 36.7 C 78 18 145/94 H 97 04/12/22 19:52 36.7 C 78 62 18 145/94 H 97 04/12/22 19:25 O2 Del Method 04/13/22 07:00 Room Air 04/13/22 04:58 Room Air 04/12/22 23:08 04/12/22 22:55 Room Air 04/12/22 19:49 Room Air 04/12/22 19:52 04/12/22 19:25 Room Air Laboratory Results 04/11/22 07:20 04/11/22 07:20 PG Care Time/CCT Total # of Minutes Spent Total Time Spent with Patient: Total time spent is greater than 50% in coordination of care (as documented) at patient's floor/unit and/or counseling patient: Coding Level of Care Code 58289 Subseq Hosp Care Lvl 2 Diagnoses Spontaneous pneumothorax J93.83 Chest pain R07.9
[2022-04-13 07:31] VITALS: PULSE 54
== END 2022-04-13 09:07 | disposition short-term general hospital (02) | DRG 201 ==
LOC: ED 09:18 → SUATTDRO 10:51 → 4W 10:51